=== PATIENT | female | born 1985 | race Hispanic/Latino ===

== ENCOUNTER 2018-02-27 18:54 | Inpatient (IN) | payer BC ==
[2018-02-27] MEDS ORDERED: CARBOPROST TROME 250 MCG/ML IM PRN (19:15)
[2018-02-27] MEDS ORDERED: PROMETHAZINE 25 MG/ML VIAL IM PRN (19:15)
[2018-02-27] MEDS ORDERED: METHYLERGONOVINE 0.2MG/ML AMP IM PRN (19:15)
[2018-02-27] MEDS ORDERED: Ringers Lactate 1,000 ML IV PRN (19:15)
[2018-02-27] MEDS ORDERED: BUTORPHANOL 1 MG/ML INJ IV PRN (19:15)
[2018-02-27] MEDS ORDERED: BUTORPHANOL 1 MG/ML INJ ONE (19:17)
[2018-02-27 19:45] LABS: RPR Titer ND
[2018-02-27] MEDS ORDERED: OXYTOCIN/LR 20 UNIT/1,000 ML BAG IV ONE (19:59)
[2018-02-27] MEDS ORDERED: Ringers Lactate 1,000 ML IV SCH (20:00)
[2018-02-27 20:05] LABS: Absolute Lymphocytes (CBC) 1.9 K/uL (0.7-4.9); Absolute Monocytes 0.6 K/uL (0.1-1.3); Absolute Neutrophil 10.2 K/uL (1.8-8.0); Basophils % 0.2 % (0-1.3); Eosinophils % 0.1 % (0-4.4); Hematocrit 39.5 % (36.0-45.0); Lymphocytes % 14.6 % (15.3-44.8); MCH 30.2 pg (27.0-35.0); MCV 89.2 fL (80-100); MPV 11.9 fL (7.6-11.3); Monocytes % 5.1 % (3.3-12.3); RBC Red Blood Cell Count 4.43 M/uL (3.86-4.86)
[2018-02-27] MEDS ORDERED: ROPIVACAINE HCL 100 ML IV PRN (20:18)
[2018-02-27] MEDS ORDERED: FENTANYL CITR 100 MCG/2 ML IV ONE (20:18)
[2018-02-27] MEDS ORDERED: ROPIVACAINE HCL 0.2% 20ML AMP IV ONE (20:19)
[2018-02-27] MEDS ORDERED: LIDOCAINE 1% 20 ML MDV ONE (20:22)
[2018-02-27] MEDS ORDERED: BUPIVACAINE 0.25% PF 10 ML VIAL ONE (21:33)
[2018-02-27] MEDS ORDERED: DIPHENHYDRAMINE 25 MG TAB/CAP PO PRN (22:15)
[2018-02-27] MEDS ORDERED: Oxycodone HCl/Acetaminophen 1 TAB TAB PO PRN (22:15)
[2018-02-27] MEDS ORDERED: IBUPROFEN 200 MG TAB PO PRN (22:15)
[2018-02-27] MEDS ORDERED: DOCUSATE NA/SENNA CONC 1 TAB PO PRN (22:15)
[2018-02-27] MEDS ORDERED: ACETAMINOPHEN 500 MG TAB PO PRN (22:15)
[2018-02-27] MEDS ORDERED: BISACODYL 10 MG RECTAL SUPP RECT PRN (22:15)
[2018-02-27 22:41] LABS: RPR (Rapid Plasma Reagin) NON-REACT (NON-REACT)
[2018-02-27] MEDS ORDERED: OXYTOCIN/LR 20 UNITS/1,000 ML BAG IV SCH (23:00)
[2018-02-28 01:05] VITALS: BMI 40.0
[2018-02-28] MEDS: Oxycodone HCl/Acetaminophen 1 TAB TAB PO PRN ×2 (07:45→15:34)
--- NOTE | 2018-02-28 09:29 | PN ---
The patient has just been checked. She is still about 8 cm -1 station. FHTs normal. We will go ahe ad and get Anesthesia to see if they can come out and give her an epidural, which was ordered previou cristobal. See if we can do that before she delivers. ILIA/LOVE Voice ID: [id number] Report ID: [id number]
--- NOTE | 2018-02-28 09:32 | PREOPHP ---
Date of Admission: 02/27/2018 A 33-year-old female, 3, para 2, at 37 weeks 2 days, is in labor and delivery this morning, t aking she was having contractions, was evaluated not thought to be in labor and sent home. Comes jake k this evening in active labor, 4-5 cm on admission. The patient is now 8 cm, 100% effaced, vertex 0 to -1 station. Rupture of membranes, slightly blood tinged, meconium staining as possible minimal a bruption, but FHTs are completely normal and reactive. The patient is rapidly progressing, so I thin k she will deliver vaginally and then we will inspect the placenta. Rh positive. Immune to Rubella. Negative beta strep screen. Admission talk given. The patient probably will not have time for an epidural although I ordered an epidural and Anesthesia is not called. At this point, we will check h er again in another 15 minutes and if she still has not completely dilated then we will call anesthes ia. I thought she will probably deliver rapidly, and we probably will not have time. Full discussio n with patient and family. ILIA/LOVE Voice ID: [id number]
--- NOTE | 2018-02-28 11:11 | DS ---
Hospital Course: A 33-year-old, 3, para 2, 37 weeks 2 days, had been seen earlier in the day , thought she was in labor. Labor and Delivery nurses thought otherwise, she was sent home. Came ba dafne in active labor. 4-5 cm on admission with rupture of membranes, slight bloody show, thought to po ssibly be marginal abruption but later inspection of the placenta showed it was just bloody show. St adol IV 1 mg, Phenergan 25 mg IM. Then at 8-1/2 to 9 cm the patient was given spinal block anesthesi a, which gave excellent effect. Shortly thereafter, she began pushing, second stage of 5-7 minutes, spontaneous vaginal delivery of an estimated 7-1/2 to 8 pounds male infant, Apgars 9 and 9. No episi otomy. No laceration. Schultze delivery of the placenta, which was inspected and noted to be intact and normal. Less than 250 cc blood loss. Rh positive, immune to Rubella. Negative beta strep scre en. The patient tolerated all procedures well. Final Diagnosis: Term intrauterine at 37 weeks 2 days, spontaneous labor, vaginal delivery , spinal block anesthesia. ILIA/LOVE Voice ID: [id number] Report ID: [id number]
--- NOTE | 2018-03-01 04:27 | DS ---
Hospital Course: A 33-year-old, 3, para 2. The patient was 37 weeks 2 days, came in active labor, subsequently delivered a 7-pound 12-ounce male , Apgars 9 and 9. No episiotomy. No lac eration. Schultze delivery of the placenta, which was inspected and noted to be intact and normal. Less than 250 cc blood loss. Spinal block with fentanyl gave excellent relief. Rh positive. Immune to Rubella. Negative beta strep screen. afebrile, ambulating, and voiding. Lochia is n ormal. The patient will be dismissed either late this evening or more likely tomorrow morning to rep ort back to my office in 6 weeks for followup, to report any temperature elevation of 100 degrees or greater, severe pain, heavy bleeding, or any other type of abnormalities. No post spinal block probl ems. Full dismissal instructions. She is given tramadol for analgesia although she knows she can ta ke Motrin or Tylenol instead as all medicines go through the breast milk. Full discussion. She has had her Tdap immunization. She has no problems or questions this morning. Final Diagnoses: Term intrauterine 37 weeks 2 days, spontaneous labor, spontaneous vaginal delivery, spinal block anesthesia. ILIA/LEANDROL Voice ID: [id number] Report ID: [id number]
[2018-03-01 09:24] VITALS: TEMP 97.7
[2018-03-01 09:30] VITALS: BP 121/70
--- NOTE | 2018-03-02 05:25 | DS ---
Date of Discharge: 03/01/2018 Hospital Course: This is a 33-year-old, 3, para 2, 37 weeks 2 days. Vaginal delivery of an estimated 7 pound 12 ounce male , Apgars 9 and 9. Spinal block anesthesia. No episiotomy. No laceration. Less than 250 cc blood loss. Rh positive, immune to Rubella. Negative beta strep scre en. Done well . She is afebrile, ambulating, and voiding. Dismissed to return to [facility] in 6 weeks for followup. To report any temperature elevation of 100 degrees or greater, severe pa in, heavy bleeding, or any other type of abnormalities. Final Diagnoses: Term intrauterine at 37 weeks 2 days. Vaginal delivery. Spinal block an esthesia. ILIA/LOVE Voice ID: [id number] Report ID: [id number]
[2018-03-03 04:03] LABS: HBsAG Nonreactive (Nonreactive)
--- NOTE | 2018-03-06 08:14 | OP ---
Surgeon: Matty Benitez MD Indication And Procedure: A 33-year-old, 3, para 2, 37 weeks 2 days, came in active labor. Had spinal block anesthesia for delivery. During the labor, Stadol IV and Phenergan IM, progressed rapidly to complete second stage of 10 minut es or less. Spontaneous vaginal delivery of a 7 pounds, 12 ounce male , Apgars 9 and 9. No ep isiotomy. No laceration. Schultze delivery of the placenta which was inspected and noted to be inta ct and normal. A 250 cc or less blood loss. Rh positive, immune to Rubella. Negative beta strep sc reen. Tolerated all procedures well. Final Diagnoses: Term intrauterine 37 weeks 2 days, spontaneous labor, vaginal delivery, s sera block anesthesia. ILIA/LOVE Voice ID: [id number] Report ID: [id number]
== END 2018-03-01 08:30 | disposition home or self-care (01) | DRG 775 ==
LOC: L&D 18:54 → 2ND-WC 19:05
PROVIDERS: ADMIT Specialist; ATTEND Specialist
PROC: 10E0XZZ Delivery of Products of Conception, External Approach (ICD-10-PCS; principal; 2018-02-27)
PROC: 10907ZC Drainage of Amniotic Fluid, Therapeutic from Products of Conception, Via Natural or Artificial Opening (ICD-10-PCS; 2018-02-27)
DX: O80 Encounter for full-term uncomplicated delivery (principal); Z3A.37 37 weeks gestation of pregnancy; Z37.0 Single live birth
CPT/HCPCS: 36415; 85025; 86592; 86901; 87340; 99218; J0595; J2210; J2550; J2590; J2795; J3010

== ENCOUNTER 2019-06-29 01:54 | Emergency (ER) | payer BC ==
[2019-06-29] MEDS ORDERED: NA CHLORIDE 0.9% 1,000 ML ONE (02:31)
[2019-06-29] MEDS ORDERED: ONDANSETRON 4 MG/2 ML VIAL ONE (02:31)
[2019-06-29 02:52] LABS: Hematocrit 41.9 % (36.0-45.0)
[2019-06-29 02:53] LABS: Absolute Lymphocytes (CBC) 0.6 K/uL (0.7-4.9); Basophils % 0.2 % (0-1.3); Lymphocytes % 8.1 % (15.3-44.8); MPV 10.3 fL (7.6-11.3)
[2019-06-29 03:03] LABS: Albumin 4.2 g/dL (3.4-5.0); Bilirubin Direct 0.2 mg/dL (0-0.2); Bilirubin Total 0.7 mg/dL (0.2-1.0); Potassium 3.8 mmol/L (3.5-5.1); Protein, Total 7.9 g/dL (6.4-8.2)
[2019-06-29 03:19] LABS: Blood Morphology Comment NOT SEEN (NOT SEEN); Platelet Estimate ADEQ
--- NOTE | 2019-06-29 03:36 | ER ---
Nurse's Notes [facility] Name: Garima Doherty Age: 34 yrs Sex: Female : 1985 Arrival Date: 06/29/2019 Time: 01:56 Bed 7 Private MD: Diagnosis: Vomiting, unspecified;Diarrhea, unspecified;Dehydration Presentation: 06/29 02:07 Presenting complaint: Patient states: she has been feeling bad today has vomited x 3, bb she had some chest pain then pain in the epigastric area radiating to back is feeling dizzy, pain is intermittent and 9/10. Transition of care: patient was not received from another setting of care. Onset of symptoms was June 28, 2019. Risk Assessment: Do you want to hurt yourself or someone else? Patient reports no desire to harm self or others. Initial Sepsis Screen: Does the patient meet any 2 criteria? No. Patient's initial sepsis screen is negative. Does the patient have a suspected source of infection? No. Patient's initial sepsis screen is negative. Care prior to arrival: None. 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 - Social history:: Smoking status: Patient/guardian denies using tobacco. - Ebola Screening: : No symptoms or risks identified at this time. Screenin:39 Abuse screen: Denies threats or abuse. Denies injuries from another. Nutritional ak1 screening: No deficits noted. Tuberculosis screening: No symptoms or risk factors identified. Fall Risk None identified. Assessment: 02:39 General: Appears in no apparent distress. comfortable, Behavior is calm, cooperative, ak1 appropriate for age. Pain: Complains of pain in epigastric area, right upper quadrant and left upper quadrant. Neuro: No deficits noted. Cardiovascular: No deficits noted. Respiratory: No deficits noted. GI: Abdomen is round non-distended, Bowel sounds present X 4 quads. Abd is soft and non tender X 4 quads. Abd is soft Reports nausea, vomiting, since breakfast this morning. pt stated she had egg and sausage biscuit for breakfast, vomited after eating. pt stated she had pizza and cupcake for lunch, vomited after eating. pt stated she had soup for dinner and vomited after dinner. pt denies diarrhea. : No signs and/or symptoms were reported regarding the genitourinary system. EENT: No signs and/or symptoms were reported regarding the EENT system. Derm: No signs and/or symptoms reported regarding the dermatologic system. Musculoskeletal: No signs and/or symptoms reported regarding the musculoskeletal system. 03:40 Reassessment: Patient appears in no apparent distress at this time. Patient and/or ak1 family updated on plan of care and expected duration. Pain level reassessed. Patient is alert, oriented x 3, equal unlabored respirations, skin warm/dry/pink. pt given ice chips and ice water to advance as tolerated for PO challenge. Patient states feeling better. Patient states symptoms have improved. 03:58 Reassessment: no vomiting since pt has been in ER. ak1 Vital Signs: 02:09 BP 116 / 80; Pulse 101; Resp 16 S; Temp 100.3(O); Pulse Ox 97% on R/A; Weight 86.18 kg bb (R); Height 5 ft. 1 in. (154.94 cm) (R); Pain 9/10; 02:42 BP 113 / 79; Pulse 91; Resp 16; Pulse Ox 98% on R/A; ak1 03:00 BP 103 / 65; Pulse 86; Resp 16; Temp 98.3(O); Pulse Ox 98% ; ak1 02:09 Body Mass Index 35.90 (86.18 kg, 154.94 cm) ED Course: 01:56 Patient arrived in ED. ds1 02:08 Triage completed. bb 02:09 Arm band placed on Patient placed in an exam room, on a stretcher, on pulse oximetry. bb Family accompanied patient. 02:19 Tj Singh MD is Attending Physician. tw4 02:26 Velma Hedrick, RN is Primary Nurse. ak1 02:39 Patient has correct armband on for positive identification. Bed in low position. Call ak1 light in reach. Side rails up X 1. Adult w/ patient. Pulse ox on. NIBP on. 02:39 Initial lab(s) drawn, by ED staff, sent to lab. Urine collected: clean catch specimen. ak1 Inserted saline lock: 20 gauge in right antecubital area, using aseptic technique. ,using aseptic technique. placed by Robert Prater Blood collected. 03:40 No provider procedures requiring assistance completed. ak1 03:58 IV discontinued, intact, bleeding controlled, No redness/swelling at site. Pressure ak1 dressing applied. Administered Medications: 02:37 Drug: NS 0.9% 1000 ml Route: IV; Rate: 1 bolus; Site: right antecubital; ak1 03:18 Follow up: IV Status: Completed infusion; IV Intake: 1000ml ak1 02:38 Drug: Zofran 4 mg Route: IVP; Site: right antecubital; ak1 03:13 Follow up: Response: No adverse reaction ak1 Intake: 03:18 IV: 1000ml; Total: 1000ml. ak1 Outcome: 03:35 Discharge ordered by . tw4 03:58 Discharged to home ambulatory, with family. ak1 03:58 Condition: good 03:58 Discharge instructions given to patient, family, Instructed on discharge instructions, follow up and referral plans. medication usage, Demonstrated understanding of instructions, follow-up care, medications, Prescriptions given X 1. 03:59 Patient left the ED. ak1 Signatures: Shanel Mccabe Brenda, RN RN Velma Martines RN RN ak1 Tj Singh MD MD tw4
--- NOTE | 2019-06-29 03:36 | EDPHYS ---
Physician Documentation [facility] Name: Garima Doherty Age: 34 yrs Sex: Female : 1985 Arrival Date: 06/29/2019 Time: 01:56 Bed 7 Private MD: ED Physician Tj Singh HPI: 06/29 05:51 This 34 yrs old Female presents to ER via Ambulatory with complaints of Can't tw4 Keep Anything Down, Abdominal Pain. 05:51 The patient presents to the emergency department with nausea, vomiting. The patient tw4 presents to the emergency department with vomiting, 3 times since the onset of symptoms. Onset: The symptoms/episode began/occurred today. The symptoms are aggravated by nothing. The symptoms are alleviated by nothing. Severity of symptoms: At their worst the symptoms were moderate in the emergency department the symptoms are unchanged. The patient has not experienced similar symptoms in the past. 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 - Social history:: Smoking status: Patient/guardian denies using tobacco. - Ebola Screening: : No symptoms or risks identified at this time. ROS: 05:51 Constitutional: Negative for fever, chills, and weight loss, Eyes: Negative for injury, tw4 pain, redness, and discharge, Cardiovascular: Negative for chest pain, palpitations, and edema, Respiratory: Negative for shortness of breath, cough, wheezing, and pleuritic chest pain. 05:51 MS/Extremity: Negative for injury and deformity, Skin: Negative for injury, rash, and discoloration, Neuro: Negative for headache, weakness, numbness, tingling, and seizure. 05:51 Abdomen/GI: Positive for nausea and vomiting, nausea, vomiting, and diarrhea, nausea, vomiting, abdominal cramps, Negative for black/tarry stool, rectal pain, rectal bleeding, bowel incontinence. Exam: 05:51 Constitutional: This is a well developed, well nourished patient who is awake, alert, tw4 and in no acute distress. Head/Face: Normocephalic, atraumatic. Chest/axilla: Normal chest wall appearance and motion. Nontender with no deformity. No lesions are appreciated. Cardiovascular: Regular rate and rhythm with a normal S1 and S2. No gallops, murmurs, or rubs. Normal PMI, no JVD. No pulse deficits. Respiratory: Lungs have equal breath sounds bilaterally, clear to auscultation and percussion. No rales, rhonchi or wheezes noted. No increased work of breathing, no retractions or nasal flaring. 05:51 Skin: Warm, dry with normal turgor. Normal color with no rashes, no lesions, and no evidence of cellulitis. MS/ Extremity: Pulses equal, no cyanosis. Neurovascular intact. Full, normal range of motion. Neuro: Awake and alert, GCS 15, oriented to person, place, time, and situation. Cranial nerves II-XII grossly intact. Motor strength 5/5 in all extremities. Sensory grossly intact. Cerebellar exam normal. Normal gait. 05:51 Abdomen/GI: Inspection: abdomen appears normal, Bowel sounds: Palpation: mild abdominal tenderness, in the epigastric area. Vital Signs: 02:09 BP 116 / 80; Pulse 101; Resp 16 S; Temp 100.3(O); Pulse Ox 97% on R/A; Weight 86.18 kg bb (R); Height 5 ft. 1 in. (154.94 cm) (R); Pain 9/10; 02:42 BP 113 / 79; Pulse 91; Resp 16; Pulse Ox 98% on R/A; ak1 03:00 BP 103 / 65; Pulse 86; Resp 16; Temp 98.3(O); Pulse Ox 98% ; ak1 02:09 Body Mass Index 35.90 (86.18 kg, 154.94 cm) bb MDM: 02:19 Patient medically screened. tw4 05:51 Differential diagnosis: Nonspecific abd pain, gastritis, cholecystitis. Data reviewed: tw4 vital signs, nurses notes. Data interpreted: Pulse oximetry: Interpretation: normal. Counseling: I had a detailed discussion with the patient and/or guardian regarding: the historical points, exam findings, and any diagnostic results supporting the discharge/admit diagnosis. Special discussion: I discussed with the patient/guardian in detail that at this point there is no indication for admission to the hospital. It is understood, however, that if the symptoms persist or worsen the patient needs to return immediately for re-evaluation. 06/29 02:20 Order name: Basic Metabolic Panel; Complete Time: 03:33 06/29 03:33 Interpretation: Normal except: GLUC 128; GFR 66. 06/29 02:20 Order name: CBC with Diff; Complete Time: 03:33 06/29 03:33 Interpretation: Normal except: FACUNDO% 85.1; LYM% 8.1. 06/29 02:20 Order name: Creatinine for Radiology; Complete Time: 03:33 06/29 02:20 Order name: Hepatic Function; Complete Time: 03:33 06/29 02:20 Order name: Lipase; Complete Time: 03:33 06/29 03:34 Interpretation: Within normal limits: LIP 90. 06/29 02:47 Order name: Urine Dipstick--[facility]cillary (enter results) [facility] 06/29 02:20 Order name: IV Saline Lock; Complete Time: 02:44 06/29 02:20 Order name: Labs collected and sent; Complete Time: 02:44 06/29 02:20 Order name: Urine Dipstick-Ancillary (obtain specimen); Complete Time: 02:43 06/29 02:20 Order name: Urine Test (obtain specimen); Complete Time: 02:44 06/29 02:47 Order name: Urine --[facility]cillary (enter results) [facility] 06/29 03:06 Order name: Manual Differential; Complete Time: 03:33 EDMS 06/29 03:33 Interpretation: Abnormal: LYM 5; BANDS [F] 3; SEGS 86. tw4 Administered Medications: 02:37 Drug: NS 0.9% 1000 ml Route: IV; Rate: 1 bolus; Site: right antecubital; ak1 03:18 Follow up: IV Status: Completed infusion; IV Intake: 1000ml ak1 02:38 Drug: Zofran 4 mg Route: IVP; Site: right antecubital; ak1 03:13 Follow up: Response: No adverse reaction ak1 Disposition: 06/29/19 03:35 Discharged to Home. Impression: Vomiting, unspecified, Diarrhea, unspecified, Dehydration. - Condition is Stable. - Discharge Instructions: Nausea and Vomiting, Adult. - Prescriptions for Zofran 4 mg Oral Tablet - take 1 tablet by ORAL route every 12 hours As needed; 6 tablet. - Medication Reconciliation Form, Thank You Letter, Antibiotic Education, Prescription Opioid Use form. - Follow up: Private Physician; When: Upon discharge from the Emergency Department; Reason: If symptoms return, Recheck today's complaints, Continuance of care. - Problem is new. - Symptoms have improved. Signatures: Dispatcher [employer] EDMaryanne Agarwal RN RN Velma Martines RN RN ak1 Tj Singh MD MD tw4 Corrections: (The following items were deleted from the chart) 03:59 03:35 06/29/2019 03:35 Discharged to Home. Impression: Vomiting, unspecified; Diarrhea, ak1 unspecified; Dehydration. Condition is Stable. Forms are Medication Reconciliation Form, Thank You Letter, Antibiotic Education, Prescription Opioid Use. Follow up: Private Physician; When: Upon discharge from the Emergency Department; Reason: If symptoms return, Recheck today's complaints, Continuance of care. Problem is new. Symptoms have improved. tw4
[2019-06-29 04:09] VITALS: O2SAT 98
[2019-06-29 04:10] VITALS: BP 103/65; TEMP 98.3
[2019-06-29 04:17] LABS: Urine Blood NEGATIVE (NEG); Urine Glucose NEGATIVE (NEG); Urine Protein 1+ (NEG); Urine pH 8.5 (5.0-7.0)
== END 2019-06-29 03:59 | disposition home or self-care (01) ==
LOC: ER 01:54
DX: E86.0 Dehydration (principal); R19.7 Diarrhea, unspecified
CPT/HCPCS: 96361; 85025; 80048; 36415; 81025; 80076; 81003; 83690; 96374; 99284; J7030; J2405

== ENCOUNTER 2021-10-31 08:18 | Day surgery (SDC) | payer OTHER ==
[2021-10-27 10:46] LABS: Absolute Lymphocytes (CBC) 2.4 K/uL (0.7-4.9); Hematocrit 41.7 % (36.0-45.0); Lymphocytes % 34.4 % (15.3-44.8); MPV 10.3 fL (7.6-11.3); RBC Red Blood Cell Count 4.74 M/uL (3.86-4.86)
[2021-10-27 10:49] LABS: Protime INR 0.99
[2021-10-27 10:59] LABS: Potassium 3.8 mmol/L (3.5-5.1)
--- NOTE | 2021-10-28 15:14 | EKG ---
Test Date: 2021-10-27 Test Time: 10:19:12 Drain Tile Machine Operator: OSKAR MEASUREMENT RESULTS: Intervals: Rate: 63 OR: 162 QRSD: 80 QT: 412 QTc: 421 [place]: P: 42 OR: 162 QRS: 0 T: 22 INTERPRETIVE STATEMENTS: Normal sinus rhythm Normal ECG No previous ECG available for comparison Electronically Signed On 10-28-21 15:14:03 PLASTER LATHER by Codey Collins
[2021-10-31] MEDS ORDERED: Ringers Lactate 1,000 ML IV ONE (08:42)
[2021-10-31] MEDS ORDERED: CEFAZOLIN/SWI 2gm 2 GM/20 ML SYR ONE (09:58)
[2021-10-31] MEDS ORDERED: FENTANYL CITR 100 MCG/2 ML ONE (09:59)
[2021-10-31] MEDS ORDERED: propofoL 200 MG/20 ML VIAL IV ONE (09:59)
[2021-10-31] MEDS ORDERED: MIDAZOLAM HCL 2 MG/2 ML INJ ONE (09:59)
[2021-10-31] MEDS ORDERED: LIDOCAINE 1% MPF 5 ML VIAL ONE (09:59)
[2021-10-31] MEDS ORDERED: dexAMETHasone 10 MG/ML VIAL ONE (10:00)
[2021-10-31] MEDS ORDERED: ONDANSETRON 4 MG/2 ML VIAL ONE (10:02)
[2021-10-31] MEDS ORDERED: CODEINE 30MG/APAP 300MG TAB PO PRN ×2 (10:14→11:16)
[2021-10-31] MEDS ORDERED: PHENAZOPYRIDINE 100MG TAB PO ONE ×3 (10:14→12:20)
[2021-10-31] MEDS ORDERED: KETOROLAC 30 MG/ML INJ ONE (11:05)
[2021-10-31 11:17] VITALS: TEMP 97
--- NOTE | 2021-10-31 11:26 | RAD REPORT ---
EXAM DESCRIPTION: RAD - Urethrocystogrphy Retrograde - 10/31/2021 11:10 am FINDINGS: A total of 34 portable fluoroscopic KUB images were obtained during a fluoroscopic assiste d placement of bilateral ureteral stents. Images show stepwise placement of the stents with no suspicious or unexpected finding. Fluoro time was 44 seconds
[2021-10-31] MEDS ORDERED: CODEINE 30MG/APAP 300MG TAB ONE (12:20)
--- NOTE | 2021-10-31 13:35 | OP ---
Surgeon: SALINA BUTLER Preoperative Diagnoses: 1.Bilateral nephrolithiasis. 2.Bilateral flank pain. 3.Persistent proteus urinary tract infection. Postoperative Diagnoses: 1.Bilateral nephrolithiasis. 2.Bilateral flank pain. 3.Persistent proteus urinary tract infection. 4.Obstructive left ureterolithiasis. 5.Nonobstructive right nephrolithiasis. 6.Chronic cystitis. Principal Procedures: 1.Cystoscopy. 2.Bilateral ureteroscopy. 3.Bilateral laser lithotripsy. 4.Bilateral ureteral stents placed. 5.Bilateral retrograde pyelography. Findings: 5 mm obstructive left ureterolithiasis, 3 mm nonobstructive right nephrolithiasis. Indication For Procedure: Ms. Doherty presented to Urology Clinic with recurrent UTIs with proteus. She subsequently underwent cystoscopic evaluation and evaluation with upper tract imaging including an ultrasound and a KUB revealing the presence of bilateral nephrolithiasis. Because the UTI did not clear despite adequate targeted antimicrobial therapy, I explained to the patient the potential that the stones may be harboring infection, and the type of bacteria is known to contribute to stone form ation. As a result, because the stones were not eminently visible on KUB, the need for ureteroscopic management became evident. Also, today prior to surgery, the patient mentioned she was also having some right flank pain, which began since her last evaluation with me earlier this month. We agreed t hat we would similarly evaluate the right side in addition to management of anything on the left. Procedure In Detail: The patient was consented in the preoperative holding area before being transfe rred to the operative suite where general anesthesia was induced. She was given Ancef 2 g IV antimic robial prophylaxis and pneumo boots were provided for DVT prophylaxis. She was placed in the lithoto my position, padded and secured to the table appropriately. Her genitalia were prepped using Betadin e, and she was draped in standard fashion. The case was begun using a 22-Jamaican rigid cystoscope to traverse the urethra and into the bladder with ease. The bladder was decompressed of urine and then refilled with saline and surveyed in its entirety. Throughout the mucosa, there was evidence of circuit clerk pop cystitis cystica. As a result, I identified the ureteral orifices, which were present within the trigone and cannulated the left ureteral orifice first using a 5-Jamaican ureteral access catheter. Left retrograde pyelography: Using a 70:30 mixture of Omnipaque and saline, contrast was injected via the 5-Jamaican ureteral access catheter and did meet a point of obstruction in the distal ureter, associated with some ureteral nep hrosis proximally. Contrast did eventually enter the renal pelvis. As a result, I passed a Sensor w marifer beyond the point of obstruction and the wire did coil in the upper pole of the kidney. I then wa s able to decompress her bladder and turned my attention to the right side where a right retrograde p yelogram was also performed. Right retrograde pyelography: Using a similar 70:30 mixture of Omnipaque and saline, contrast mixture was injected via a 5-Jamaican u reteral access catheter after it was inserted into the ureteral orifice on the right side. On this s luis fernando, however, there was no sign of obstruction and the contrast did propagate easily without evidence of ureteral filling defects or ureteronephrosis before entering a nondilated renal pelvis with no ev idence of caliectasis and sharp calices noted superiorly and inferiorly. There was a filling defect within the mid pole calyx suspicious for possible calculus in that region. As a result, I passed a B entson guidewire via the 5-Jamaican ureteral access catheter and observed a coil in the renal pelvis on the right. I then turned my attention back to the left side where a dual-lumen catheter was used to dilate the ureteral orifice and confirmed the appropriate intraureteral lumen location of the Sensor wire. I then removed the dual-lumen catheter and performed direct vision semi-rigid ureteroscopy in to the ureteral orifice where the stone was encountered. I then employed a 200 nm laser fiber to lucie ckly fragment the stone to particle smaller than 1 mm. I was then able to navigate the semi-rigid ur eteroscope beyond that point of obstruction and into the proximal ureter before passing a Bentson lyla dewire into the kidney under direct vision. I then removed the semi-rigid ureteroscope and passed ov er the Bentson guidewire, a flexible ureteroscope into the upper pole of the kidney. Each of the perry ices of the kidney was surveyed and confirmed using fluoroscopic guidance, and no additional calculi were noted within the kidney. I then surveyed down the renal pelvis through the proximal into the mi d and distal ureter before a mass of the fragmented stone was observed just within the intramural ure ter. Thus, I employed a 1.9-Jamaican 0 tipped Nitinol basket to grasp the stones and deliver it from t he ureteral orifice. This was sent for chemical analysis. Then, leaving the Sensor wire in place on the left, I turned my attention to the right side. Over the indwelling Bentson safety wire on the right, I passed a dual-lumen catheter into the mid ure ter and again confirmed the appropriate intraureteral lumen location of the dual-lumen catheter. I t hen passed a second Bentson guidewire into the upper pole of the kidney and removed the dual-lumen ca theter. Over the second Bentson guidewire, I then passed the flexible ureteroscope into the upper po le of the kidney and surveyed each of the calices. As observed on the prior retrograde pyelogram alhaji dy on the right, within the mid pole calyx on the left, there was an approximately 3 mm calculus. I quickly fragmented this using the 200 nm laser fiber. I then continued to survey into the lower pole calices where only evidence of Graham plaques were noted. I thus surveyed from the renal pelvis do wn into the proximal, mid, and distal ureter before discontinuing right-sided ureteroscopy. I then back-loaded the cystoscope over the left indwelling safety wire and passed a 6-Jamaican x 24 cm double-J stent. A coil was observed fluoroscopically within the kidney and 1 cystoscopically was for med in the bladder. I then turned my attention to the right side and similarly backloaded the cystos cope over the indwelling safety wire before passing an additional 6-Jamaican x 24 cm double-J right-laureen ed ureteral stent. Similarly, a coil was observed cystoscopically within the bladder and 1 was forme d fluoroscopically within the renal pelvis. Her bladder was then decompressed of fluid, urine, and s ome additional stone fragments. The stone fragments were collected, and these were sent for culture. The patient was then taken out of the lithotomy position, awakened from general anesthesia, transfe rred to a stretcher, and then transferred to the recovery room in good condition. Complications: None. Discharge Disposition: To treat the chronic cystitis, I will prescribe Bactrim Double Strength table ts to be taken twice daily for the next 10 days. We will arrange for cystoscopy and bilateral ureter al stent extraction in the office within 7-14 days. She will require counseling if this is her first stone forming event, to prevent future stones, and we will require a confirmation of clearance of th e proteus infection about 2 weeks after she completes the antibiotics and the stents have been remove d. ANUEL/LOVE Voice ID: [id number] Report ID: [id number]
[2021-10-31 14:23] VITALS: BP 125/81; O2SAT 100
== END 2021-10-31 13:05 | disposition home or self-care (01) ==
LOC: OR 08:18
PROVIDERS: ATTEND Urology
PROC: 0TC68ZZ Extirpation of Matter from Right Ureter, Via Natural or Artificial Opening Endoscopic (ICD-10-PCS; 2021-10-31)
PROC: 0T788DZ Dilation of Bilateral Ureters with Intraluminal Device, Via Natural or Artificial Opening Endoscopic (ICD-10-PCS; 2021-10-31)
PROC: 0TC78ZZ Extirpation of Matter from Left Ureter, Via Natural or Artificial Opening Endoscopic (ICD-10-PCS; principal; 2021-10-31 10:15)
DX: N20.1 Calculus of ureter (principal); N20.0 Calculus of kidney; R10.9 Unspecified abdominal pain; N30.20 Other chronic cystitis without hematuria; Z20.822 Contact with and (suspected) exposure to COVID-19
CPT/HCPCS: 52356; 93005; 87088; 85025; 87086; 80048; 36415; 81025; 85610; 88300; 82360; 74450; 51610; U0003; J2704; J2250; J3010; J1100; J0690; J7120; J2405

== ENCOUNTER 2023-03-27 02:31 | Emergency (ER) | payer OTHER ==
--- OUTSIDE RECORDS SUMMARY | 2023-03-27 02:33 | XMS REPORT | Continuity of Care Document ---
:1985 Author Organization [facility] t Address [address] [place] [address] Care Team Providers Name Role Phone Andrés Alta Attending Clinician Unavailable Payers Payer Name Policy Type Policy Number Effective Date Expiration Date S trell AETNA 53 [id number] [facility] Blue Cross C1 [id number] [facility] of [facility] Blue Cross C1 [id number] [facility] [employer] of [facility] Blue Cross and C1 [id number] [facility] S [facility] Problems Condition Condition Condition Status Onset Resolution Last Treating Co mments Source Name Details Category Date Date Treatment Clinician Date Kidney Nephrolith Problem Active Commo n stone iasis [facility] [id number] Left flank Problem Active Co mmon pain [facility] [id number] Proteus Problem Active Common (mirabilis [facility] ) - [facility] (morganii) St as the [facility] cause of Medical diseases Center classified elsewhere [id number] Urinary Problem Active Commo n tract [facility] infection, - [facility] site not [facility] [id number] Caliectasi Problem Active Co mmon s [facility] [id number] Nephrouret Problem Active Co mmon erolithias [facility] is - [facility] Allergies, Adverse Reactions, Alerts This patient has no known allergies or adverse reactions. Social History Social Habit Start Date Stop Date Quantity Comments Source History of Tobacco Use Co mmon [facility] Sex Assigned At Com mon [facility] Smoking Status Start Date Stop Date Source Never Smoker [facility] Medications Ordered Filled Start Stop Current Ordering Indication Dosage Frequency Signature Comments Components Source Medication Medication Date Date Medication? Clinician (SIG) Name Name Ditropan XL Ditropan XL 2021- No 1{table QD Ditropan 5 MG 5 MG 11-2016 t} XL 5 MG 00:00: 00:00 00 :00 Cephalexin Cephalexin 2021- No 1{capsu TID Cephalexin 500 MG 500 MG 10-18 le} 500 MG 00:00: 00:00 00 :00 Cephalexin Cephalexin 2020-10- No 1{capsu TID Cephalexin 500 MG 500 MG 11-30 le} 500 MG 00:00: 00:00 00 :00 Cephalexin Cephalexin 2020- No 1{capsu TID Cephalexin 500 MG 500 MG 04-10 le} 500 MG 00:00: 00:00 00 :00 No Known No Known No Common Medications Medications [facility] No Known No Known No Common Medications Medications [facility] No Known No Known No Common Medications Medications [facility] No Known No Known No Common Medications Medications [facility] Vital Signs Vital Name Observation Time Observation Value Comments Source height 2022-01-01 10:45:00 61 [in_i] [facility] weight 2022-01-01 10:45:00 199.2 [lb_av] [facility] temperature 2022-01-01 10:45:00 98.6 [degF] [facility] bmi 2022-01-01 10:45:00 37.63 kg/m2 [facility] oximetry 2022-01-01 10:45:00 100 % [facility] respiratory rate 2022-01-01 10:45:00 16 /min Comm on [facility] blood pressure 2022-01-01 10:45:00 150 mm[Hg] [facility] - systolic [facility] blood pressure 2022-01-01 10:45:00 84 mm[Hg] [facility] - diastolic [facility] height 2021-11-20 13:15:00 61 [in_i] [facility] weight 2021-11-20 13:15:00 194 [lb_av] Common S pirit [facility] temperature 2021-11-20 13:15:00 98.6 [degF] Common S pirit [facility] bmi 2021-11-20 13:15:00 36.65 kg/m2 Common S pirit [facility] oximetry 2021-11-20 13:15:00 98 % [facility] respiratory rate 2021-11-20 13:15:00 16 /min Comm on [facility] blood pressure 2021-11-20 13:15:00 117 mm[Hg] [facility] - systolic [facility] blood pressure 2021-11-20 13:15:00 79 mm[Hg] [facility] - diastolic [facility] height 2021-10-18 16:15:00 61 [in_i] [facility] weight 2021-10-18 16:15:00 196.4 [lb_av] Common [facility] temperature 2021-10-18 16:15:00 97.9 [degF] Common S pirit [facility] bmi 2021-10-18 16:15:00 37.11 kg/m2 Common S pirit [facility] oximetry 2021-10-18 16:15:00 97 % Common S pirit [facility] respiratory rate 2021-10-18 16:15:00 16 /min Comm on [facility] blood pressure 2021-10-18 16:15:00 122 mm[Hg] [facility] - systolic [facility] blood pressure 2021-10-18 16:15:00 73 mm[Hg] [facility] - diastolic [facility] height 2021-09-27 09:15:00 61 [in_i] Common S pirit [facility] weight 2021-09-27 09:15:00 199.8 [lb_av] [facility] temperature 2021-09-27 09:15:00 97.8 [degF] Common S pirit [facility] bmi 2021-09-27 09:15:00 37.75 kg/m2 Common S pirit [facility] oximetry 2021-09-27 09:15:00 96 % Common [facility] respiratory rate 2021-09-27 09:15:00 18 /min Comm on [facility] blood pressure 2021-09-27 09:15:00 141 mm[Hg] Common [facility] - systolic [facility] blood pressure 2021-09-27 09:15:00 82 mm[Hg] [facility] - diastolic [facility] height 2021-04-05 14:30:00 61 [in_i] [facility] 2021-04-05 14:30:00 200.4 [lb_av] [facility] temperature 2021-04-05 14:30:00 97.4 [degF] Common S pirit [facility] bmi 2021-04-05 14:30:00 37.86 kg/m2 [facility] S [facility] oximetry 2021-04-05 14:30:00 98 % Common S pirit - [facility] blood pressure 2021-04-05 14:30:00 104 mm[Hg] [facility] - systolic [facility] blood pressure 2021-04-05 14:30:00 70 mm[Hg] [facility] - diastolic [facility] height 2021-02-22 13:30:00 61 [in_i] Common S pirit [facility] weight 2021-02-22 13:30:00 199.6 [lb_av] [facility] temperature 2021-02-22 13:30:00 97.1 [degF] Common S pirit [facility] bmi 2021-02-22 13:30:00 37.71 kg/m2 Common S pirit [facility] oximetry 2021-02-22 13:30:00 99 % Common S pirit [facility] blood pressure 2021-02-22 13:30:00 131 mm[Hg] Common [facility] - systolic [facility] blood pressure 2021-02-22 13:30:00 83 mm[Hg] Common [facility] - diastolic [facility] Procedures This patient has no known procedures. Encounters Start End Encounter Admission Attending Care Care Encounter Source Date/Time Date/Time Type Type Clinicians Facility Department ID 2021-11-06 Outpatient Andrés, STLMLC STLMLC [id number] 2 Common 15:40:01 Alta [facility] 2021-11-01 Outpatient Andrés, STLMLC STLMLC [id number] 2 Common 14:39:29 Alta [facility] 2021-11-01 Outpatient Andrés, STLMLC STLMLC [id number] 2 Common 13:05:14 Alta [id number] [facility] 2022-01-01 2022-01-01 OFFICE STLMLC STLMLC [id number] Co mmon 00:00:00 00:00:00 VISIT Spirit ESTAB PT - CHI LEVEL 2 [facility] 2021-11-20 2021-11-20 OFFICE STLMLC STLMLC [id number] Co mmon 00:00:00 00:00:00 VISIT Spirit ESTAB PT - CHI LEVEL 1 [facility] 2021-10-18 2021-10-18 OFFICE STLMLC STLMLC [id number] Co mmon 00:00:00 00:00:00 VISIT Spirit ESTAB PT - CHI LEVEL 4 [facility] 2021-09-29 2021-09-29 (TEL) STLMLC STLMLC [id number] Co mmon 00:00:00 00:00:00 [facility] 2021-09-27 2021-09-27 OFFICE STLMLC STLMLC [id number] Co mmon 00:00:00 00:00:00 VISIT EST Spir it PT LEVEL 3 - [facility] 2021-04-10 2021-04-10 (TEL) STLMLC STLMLC [id number] Co mmon 00:00:00 00:00:00 [facility] - [facility] 2021-04-05 2021-04-05 OFFICE STLMLC STLMLC [id number] Co mmon 00:00:00 00:00:00 VISIT Spirit ESTAB PT - CHI LEVEL 2 [facility] 2021-02-22 2021-02-22 OFFICE STLMLC STLMLC [id number] Co mmon 00:00:00 00:00:00 VISIT NEW Spir it PT LEVEL 2 [facility] Results This patient has no known results.
--- NOTE | 2023-03-27 02:53 | EDPHYS ---
Physician Documentation [facility] Name: Garima Doherty Age: 38 yrs Sex: Female : 1985 Arrival Date: 03/27/2023 Time: 02:31 Bed IW1 Private MD: ED Physician Louie Lemons HPI: 03/27 02:49 This 38 yrs old Female presents to ER via Ambulatory with complaints of Eye sp3 Problem. 02:49 . sp3 02:49 38-year-old female with no past medical history presents with left-sided eye lid sp3 swelling, eye redness, eye irritation, without loss or change in vision symptoms for approximately 4 to 5 hours. Patient states that yesterday she started rubbing her eye because it started to itch and due to that it is slowly become infected and red. There is no concern for foreign body or any direct trauma or eye injury. No history of glaucoma noted. Patient does not wear contact lenses. Review of systems otherwise negative for headache, neck pain, fever, upper respiratory symptoms, change in vision, facial pain, chest pain, shortness of breath, Trace pain, nausea, vomiting, diarrhea, rash, known sick contacts, travel history, trauma, or any other signs or symptoms on ROS at this time.. 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 - Social history:: Smoking status: Patient denies any tobacco usage or history of. Patient/guardian denies using alcohol, street drugs. ROS: 02:50 Constitutional: Negative for fever, chills, and weight loss, ENT: Negative for injury, sp3 pain, and discharge, Neck: Negative for injury, pain, and swelling, Cardiovascular: Negative for chest pain, palpitations, and edema, Respiratory: Negative for shortness of breath, cough, wheezing, and pleuritic chest pain, Abdomen/GI: Negative for abdominal pain, nausea, vomiting, diarrhea, and constipation, Back: Negative for injury and pain, MS/Extremity: Negative for injury and deformity, Skin: Negative for injury, rash, and discoloration, Neuro: Negative for headache, weakness, numbness, tingling, and seizure. 02:50 All other systems are negative. Exam: 02:51 Constitutional: This is a well developed, well nourished patient who is awake, alert, sp3 and in no acute distress. Head/Face: Normocephalic, atraumatic. ENT: Nares patent. No nasal discharge, no septal abnormalities noted. External auditory canals are clear. Oropharynx with no redness, swelling, or masses, exudates, or evidence of obstruction, uvula midline. Mucous membranes moist. Neck: Trachea midline, no thyromegaly or masses palpated, and no cervical lymphadenopathy. Supple, full range of motion without nuchal rigidity, or vertebral point tenderness. No Meningismus. Chest/axilla: Normal chest wall appearance and motion. Nontender with no deformity. No lesions are appreciated. Cardiovascular: Regular rate and rhythm with a normal S1 and S2. No gallops, murmurs, or rubs. Normal PMI, no JVD. No pulse deficits. Respiratory: Lungs have equal breath sounds bilaterally, clear to auscultation and percussion. No rales, rhonchi or wheezes noted. No increased work of breathing, no retractions or nasal flaring. Abdomen/GI: Soft, non-tender, with normal bowel sounds. No distension or tympany. No guarding or rebound. No evidence of tenderness throughout. Back: No spinal tenderness. No costovertebral tenderness. Full range of motion. Neuro: Awake and alert, GCS 15, oriented to person, place, time, and situation. Cranial nerves II-XII grossly intact. Motor strength 5/5 in all extremities. Sensory grossly intact. Cerebellar exam normal. Normal gait. Psych: Awake, alert, with orientation to person, place and time. Behavior, mood, and affect are within normal limits. 02:51 Eyes: Left eye irritated with some erythema and upper and lower lid swelling minor in nature. No signs of orbital cellulitis or proptosis. Anterior chambers clear without any hyphema. Pupils equal round reactive to light and extraocular movements are intact. There is no pain on eye movement. Visual acuity is normal.. Vital Signs: 02:40 BP 126 / 88; Pulse 74; Resp 17; Temp 97.9; Pulse Ox 99% ; Weight 90.72 kg; Height 5 ft. jj7 1 in. ; Pain 7/10; 02:40 Body Mass Index 37.79 (90.72 kg, 154.94 cm) jj7 02:40 Pain Scale: Adult jj7 MDM: 02:37 Patient medically screened. sp3 02:51 Data reviewed: vital signs, nurses notes. ED course: 38-year-old with likely left-sided sp3 conjunctivitis. I am not suspicious for orbital cellulitis, acute angle glaucoma, posterior chamber pathology, retinal pathology, or any other critical findings. I will discharge patient home on a steroid/antibiotic combination and follow-up with her vessel specialist for anterior slit lamp exam.. Administered Medications: 02:51 Drug: Tetracaine Ophthalmic Drops 0.5 % 2 drops Route: Ophthalmic; Site: left eye; j7 02:57 Follow up: Response: Marked relief of symptoms jj7 Disposition Summary: 03/27/23 02:53 Discharge Ordered Location: Home sp3 Condition: Stable sp3 Diagnosis - Other conjunctivitis sp3 Followup: sp3 - With: Private Physician - When: Upon discharge from the Emergency Department - Reason: Continuance of care Discharge Instructions: - Discharge Summary Sheet sp3 - Bacterial Conjunctivitis, Adult sp3 Forms: - Medication Reconciliation Form sp3 - Thank You Letter sp3 - Antibiotic Education sp3 - Prescription Opioid Use sp3 Prescriptions: - Maxitrol 3.5mg/mL-10,000 unit/mL-0.1 % Ophthalmic drops, suspension - instill 2 drop by OPHTHALMIC route every 4 hours 2 drops to left eye every 4 sp3 hours while awake; 10 milliliter; Refills: 0, Product Selection Permitted Signatures: Louie Lemons MD MD sp3 Tera Sanon RN RN jj7
--- NOTE | 2023-03-27 02:53 | ER ---
Nurse's Notes [facility] Name: Garima Doherty Age: 38 yrs Sex: Female : 1985 Arrival Date: 03/27/2023 Time: 02:31 Bed IW1 Private MD: Diagnosis: Other conjunctivitis Presentation: 03/27 02:40 Chief complaint: Patient states: LEFT EYE REDNESS,SWELLING AND PAIN. Coronavirus jj7 screen: At this time, the client does not indicate any symptoms associated with coronavirus-19. Ebola Screen: No symptoms or risks identified at this time. Initial Sepsis Screen: Does the patient meet any 2 criteria? No. Patient's initial sepsis screen is negative. Does the patient have a suspected source of infection? No. Patient's initial sepsis screen is negative. Risk Assessment: Do you want to hurt yourself or someone else? Patient reports no desire to harm self or others. Onset of symptoms was March 26, 2023 at 15:00. 02:40 Method Of Arrival: Ambulatory j7 02:40 Acuity: FAVIOLA 5 jj7 Triage Assessment: 02:43 General: Appears in no apparent distress. uncomfortable, Behavior is calm, cooperative, jj7 appropriate for age. Pain: Complains of pain in left eye. EENT: Eyes are tearing on outer aspect of conjuctiva of left eye, iris of left eye and inner aspect of conjunctiva of left eye. 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 - Social history:: Smoking status: Patient denies any tobacco usage or history of. Patient/guardian denies using alcohol, street drugs. Screenin:46 [facility] ED Fall Risk Assessment (Adult) History of falling in the last 3 months, jj7 including since admission No falls in past 3 months (0 pts) Confusion or Disorientation No (0 pts) Intoxicated or Sedated No (0 pts) Impaired Gait No (0 pts) Mobility Assist Device Used No (0 pt) Altered Elimination No (0 pt) Score/Fall Risk Level 0 - 2 = Low Risk Oriented to surroundings. Abuse screen: Denies threats or abuse. Nutritional screening: No deficits noted. Tuberculosis screening: No symptoms or risk factors identified. Assessment: 02:46 Reassessment: SEE TRIAGE ASSESSMENT. jj7 Vital Signs: 02:40 BP 126 / 88; Pulse 74; Resp 17; Temp 97.9; Pulse Ox 99% ; Weight 90.72 kg; Height 5 ft. jj7 1 in. ; Pain 7/10; 02:40 Body Mass Index 37.79 (90.72 kg, 154.94 cm) jj7 02:40 Pain Scale: Adult j7 ED Course: 02:35 Patient arrived in ED. ja2 02:37 Louie Lemons MD is Attending Physician. sp3 02:43 Triage completed. jj7 02:43 Arm band placed on right wrist. jj7 02:46 Patient has correct armband on for positive identification. jj7 02:46 No provider procedures requiring assistance completed. Patient did not have IV access jj7 during this emergency room visit. Administered Medications: 02:51 Drug: Tetracaine Ophthalmic Drops 0.5 % 2 drops Route: Ophthalmic; Site: left eye; jj7 02:57 Follow up: Response: Marked relief of symptoms jj7 Medication: 02:46 VIS not applicable for this client. jj7 Outcome: 02:53 Discharge ordered by . sp3 02:57 Discharged to home ambulatory, with significant other. jj7 02:57 Condition: improved 02:57 Discharge instructions given to patient, Instructed on discharge instructions, follow up and referral plans. medication usage, Demonstrated understanding of instructions, follow-up care, medications, Prescriptions given X 1. 02:58 Patient left the ED. jj7 Signatures: Louie Lemons MD MD sp3 Allyson De La Fuente Juwairiyah, RN RN jj7
[2023-03-27] MEDS ORDERED: TETRACAINE HCL 0.5% 4ML OPTH ONE (02:57)
[2023-03-27 03:04] VITALS: BP 126/88; TEMP 97.9; O2SAT 99
== END 2023-03-27 02:58 | disposition home or self-care (01) ==
LOC: ER 02:31
DX: H10.89 Other conjunctivitis (principal)

== ENCOUNTER 2023-08-15 10:26 | Emergency (ER) | payer OTHER ==
--- OUTSIDE RECORDS SUMMARY | 2023-08-15 10:29 | XMS REPORT | Continuity of Care Document ---
:[address] [facility] t Address [address] [place] [address] Care Team Providers Name Role Phone Alta Bowen Attending Clinician Unavailable [email or web address] Attending Clinician Unavailable [email or web address] Admitting Clinician Unavailable Payers Payer Name Policy Type Policy Number Effective Date Expiration Date S trell AETNA 53 [id number] [facility] Blue Cross C1 [id number] Common Sp[facility] t Blue Shield of [facility] Blue Cross C1 [id number] Common Spiri t Blue [facility] Blue Cross and C1 [id number] Common S pirit Blue Shield [facility] Problems Condition Condition Condition Status Onset Resolution Last Treating Co mments Source Name Details Category Date Date Treatment Clinician Date Kidney Nephrolith Problem Commo n stone iasis [facility] [id number] Left flank Problem Co mmon pain [facility] [id number] Proteus Problem Common (mirabilis Spirit ) [facility] (morganii) St as the [facility] cause of Medical diseases Center classified elsewhere [id number] Urinary Problem Commo n tract Spirit infection, - [facility] site not [facility] [id number] Caliectasi Problem Co mmon s [facility] [id number] Nephrouret Problem Co mmon erolithias Spirit is - [facility] Allergies, Adverse Reactions, Alerts This patient has no known allergies or adverse reactions. Social History Social Habit Start Date Stop Date Quantity Comments Source History of Tobacco Use Co mmon [facility] Sex Assigned At Com mon [facility] Smoking Status Start Date Stop Date Source Never Smoker [facility] Medications Ordered Filled Start Stop Current [...] Known No Known No Common Medications Medications [facility] No Known No Known No Common Medications Medications [facility] No Known No Known No Common Medications Medications [facility] No Known No Known No Common Medications Medications [facility] Vital Signs Vital Name Observation Time Observation Value Comments Source height 2022-01-01 10:45:00 61 [in_i] [facility] weight 2022-01-01 10:45:00 199.2 [lb_av] [facility] temperature 2022-01-01 10:45:00 98.6 [degF] [facility] bmi 2022-01-01 10:45:00 37.63 kg/m2 [facility] oximetry 2022-01-01 10:45:00 100 % [facility] respiratory rate 2022-01-01 10:45:00 16 /min Comm on [facility] blood pressure 2022-01-01 10:45:00 150 mm[Hg] Common [facility] - systolic [facility] blood pressure 2022-01-01 10:45:00 84 mm[Hg] Common [facility] - diastolic [facility] height 2021-11-20 13:15:00 61 [in_i] Common [facility] weight 2021-11-20 13:15:00 194 [lb_av] Common [facility] temperature 2021-11-20 13:15:00 98.6 [degF] Common [facility] bmi 2021-11-20 13:15:00 36.65 kg/m2 [facility] oximetry 2021-11-20 13:15:00 98 % [facility] respiratory rate 2021-11-20 13:15:00 16 /min Comm on [facility] blood pressure 2021-11-20 13:15:00 117 mm[Hg] Common [facility] - systolic [facility] blood pressure 2021-11-20 13:15:00 79 mm[Hg] Common [facility] - diastolic [facility] height 2021-10-18 16:15:00 61 [in_i] Common [facility] weight 2021-10-18 16:15:00 196.4 [lb_av] Common [facility] temperature 2021-10-18 16:15:00 97.9 [degF] Common S [facility] bmi 2021-10-18 16:15:00 37.11 kg/m2 Common S [facility] oximetry 2021-10-18 16:15:00 97 % Common [facility] respiratory rate 2021-10-18 16:15:00 16 /min Comm on [facility] blood pressure 2021-10-18 16:15:00 122 mm[Hg] Common [facility] - systolic [facility] blood pressure 2021-10-18 16:15:00 73 mm[Hg] Common [facility] - diastolic [facility] height 2021-09-27 09:15:00 61 [in_i] Common [facility] weight 2021-09-27 09:15:00 199.8 [lb_av] Common [facility] temperature 2021-09-27 09:15:00 97.8 [degF] Common S pirit [facility] bmi 2021-09-27 09:15:00 37.75 kg/m2 Common [facility] oximetry 2021-09-27 09:15:00 96 % [facility] respiratory rate 2021-09-27 09:15:00 18 /min Comm on [facility] blood pressure 2021-09-27 09:15:00 141 mm[Hg] Common Spirit - systolic [facility] blood pressure 2021-09-27 09:15:00 82 mm[Hg] Common [facility] - diastolic [facility] height 2021-04-05 14:30:00 61 [in_i] Common [facility] weight 2021-04-05 14:30:00 200.4 [lb_av] [facility] temperature 2021-04-05 14:30:00 97.4 [degF] Common S [facility] bmi 2021-04-05 14:30:00 37.86 kg/m2 [facility] 2021-04-05 14:30:00 98 % [facility] 2021-04-05 14:30:00 104 mm[Hg] Common [facility] - systolic [facility] blood pressure 2021-04-05 14:30:00 70 mm[Hg] Common [facility] - diastolic [facility] height 2021-02-22 13:30:00 61 [in_i] Common [facility] weight 2021-02-22 13:30:00 199.6 [lb_av] Common [facility] temperature 2021-02-22 13:30:00 97.1 [degF] Common [facility] bmi 2021-02-22 13:30:00 37.71 kg/m2 Common S pirit [facility] oximetry 2021-02-22 13:30:00 99 % Common S [facility] blood pressure 2021-02-22 13:30:00 131 mm[Hg] Common [facility] - systolic [facility] blood pressure 2021-02-22 13:30:00 83 mm[Hg] Common [facility] - diastolic [facility] Procedures This patient has no known procedures. Encounters Start End Encounter Admission Attending Care Care Encounter Source Date/Time Date/Time Type Type Clinicians Facility Department ID 2021-11-06 Outpatient Andrés, STLMLC STLMLC [id number] 2 Common 15:40:01 Alta [facility] 2021-11-01 Outpatient Andrés, STLMLC STLMLC [id number] 2 Common 14:39:29 Alta [facility] 2021-11-01 Outpatient Andrés, STLMLC STLMLC [id number] 2 Common 13:05:14 Alta [id number] [facility] 2023-08-06 2023-08-06 Outpatient [email or web address] PRIV PRIV [id number] [facility] 00:00:00 00:00:00 shahnaz_Patrick [id number] Medic al 2022-01-01 2022-01-01 OFFICE STLMLC STLMLC [id number] Co mmon 00:00:00 00:00:00 VISIT Spirit ESTAB PT - [facility] LEVEL 2 [facility] 2021-12-28 2021-12-28 (TEL) STLMLC STLMLC [id number] Co mmon 00:00:00 00:00:00 [facility] 2021-11-20 2021-11-20 OFFICE STLMLC STLMLC [id number] Co mmon 00:00:00 00:00:00 VISIT Spirit ESTAB PT - [facility] LEVEL 1 [facility] 2021-10-18 2021-10-18 OFFICE STLMLC STLMLC [id number] Co mmon 00:00:00 00:00:00 VISIT Spirit ESTAB PT - [facility] LEVEL 4 [facility] 2021-09-29 2021-09-29 (TEL) STLMLC STLMLC [id number] Co mmon 00:00:00 00:00:00 [facility] 2021-09-27 2021-09-27 OFFICE STLMLC STLMLC [id number] Co mmon 00:00:00 00:00:00 VISIT EST Spir it PT LEVEL 3 - [facility] 2021-04-10 2021-04-10 (TEL) STLMLC STLMLC [id number] Co mmon 00:00:00 00:00:00 [facility] 2021-04-05 2021-04-05 OFFICE STLMLC STLMLC [id number] Co mmon 00:00:00 00:00:00 VISIT Spirit ESTAB PT - [facility] LEVEL 2 [facility] 2021-02-22 2021-02-22 OFFICE STLMLC STLMLC [id number] Co mmon 00:00:00 00:00:00 VISIT NEW Spir it PT LEVEL 2 - [facility] Results This patient has no known results.
[2023-08-15 11:24] LABS: Absolute Lymphocytes (CBC) 2.1 K/uL (0.7-4.9); Hematocrit 42.7 % (36.0-45.0); Lymphocytes % 25.7 % (15.3-44.8); MCV 89.3 fL (80-100); Platelets 177 thou/uL (152-406); RBC Red Blood Cell Count 4.79 M/uL (3.86-4.86)
[2023-08-15 11:32] LABS: Specific Gravity 1.016 (1.005-1.030)
[2023-08-15 11:34] LABS: Specific Gravity 1.016 (1.005-1.030); Urine Bacteria <20 /HPF (<20); Urine Bilirubin NEGATIVE (Negative); Urine Blood 2+ (Negative); Urine Clarity Clear (Clear); Urine Color Light-Yellow (Yellow); Urine Glucose NEGATIVE (Negative); Urine Protein NEGATIVE (Negative); Urine RBC <5 /HPF (None Seen); Urine Urobilinogen Normal (Normal); Urine pH 5.5 (5.0-7.0)
[2023-08-15] MEDS ORDERED: NA CHLORIDE 0.9% 1,000 ML ONE (11:38)
[2023-08-15] MEDS ORDERED: KETOROLAC 30 MG/ML INJ ONE (11:43)
[2023-08-15 11:49] LABS: Albumin 3.9 g/dL (3.4-5.0); Bilirubin Total 0.4 mg/dL (0.2-1.0); Potassium 3.7 mEq/L (3.5-5.1); Protein, Total 8.2 g/dL (6.4-8.2)
--- NOTE | 2023-08-15 12:15 | RAD REPORT ---
EXAM DESCRIPTION: CT - Abdomen Pelvis Wo Contrast - 08/15/2023 12:01 pm CLINICAL HISTORY: Abdominal pain right flank pain COMPARISON: 2012 TECHNIQUE: Computed axial tomography of the abdomen and pelvis was obtained. IV and oral contrast we re not requested. All CT scans are performed using dose optimization technique as appropriate and may include automated exposure control or mA/KV adjustment according to patient size. FINDINGS: The evaluation of solid organs, vessels and bowel is limited secondary to the lack of con trast administration. Liver, spleen, pancreas and adrenals grossly normal. Bilateral renal calculi. Mild right hydronephrosis. 10 millimeter calculus right UPJ Normal appendix. No evidence of diverticulitis. No adnexal mass. Smaller moderate periumbilical hernia IMPRESSION: 10 millimeter calculus right UPJ resulting in mild right hydronephrosis
--- NOTE | 2023-08-15 13:03 | ER ---
Nurse's Notes [facility] Name: Garima Doherty Age: 38 yrs Sex: Female : 1985 Arrival Date: 08/15/2023 Time: 10:26 Bed 19 Private MD: Diagnosis: Kidney stone, ureterolithiasis Presentation: 08/15 11:00 Chief complaint: Patient states: I was at work today and i sat down and started having kd3 a burning pain that starts in the right lower quadrant and moves around to my back. I have had a bowl movement today and i had my period last month. When the pain comes on it gets up to a 10/10 pain, but then it goes away. Coronavirus screen: Vaccine status:. Coronavirus screen: Vaccine status: Patient reports receiving the 1st dose of the Covid vaccine. Ebola Screen: No symptoms or risks identified at this time. Initial Sepsis Screen: Does the patient meet any 2 criteria? No. Patient's initial sepsis screen is negative. Does the patient have a suspected source of infection? No. Patient's initial sepsis screen is negative. Risk Assessment: Do you want to hurt yourself or someone else? Patient reports no desire to harm self or others. Onset of symptoms was August 15, 2023. 11:00 Method Of Arrival: Ambulatory kd3 11:00 Acuity: FAVIOLA 3 kd3 Triage Assessment: 11:02 General: Appears in no apparent distress. Behavior is calm, cooperative. Pain: kd3 Complains of pain in right lower quadrant. GI: Reports lower abdominal pain. Historical: - Allergies: 11:02 No Known Allergies; kd3 - PMHx: 11:02 Kidney stone; kd3 - Immunization history:: Adult Immunizations up to date. - Social history:: Smoking status: Patient denies any tobacco usage or history of. Screenin:18 [facility] ED Fall Risk Assessment (Adult) History of falling in the last 3 months, tm6 including since admission. Abuse screen: Denies threats or abuse. Denies injuries from another. Nutritional screening: No deficits noted. Tuberculosis screening: No symptoms or risk factors identified. Assessment: 11:18 General: Appears uncomfortable, Behavior is calm, cooperative, appropriate for age. tm6 Pain: Complains of pain in back and abdomen Pain currently is 7 out of 10 on a pain scale. Quality of pain is described as burning. Neuro: Level of Consciousness is awake, alert, obeys commands, Oriented to person, place, time, situation, Appropriate for age. Cardiovascular: Capillary refill < 3 seconds Patient's skin is warm and dry. Respiratory: Airway is patent Respiratory effort is even, unlabored, Respiratory pattern is regular, symmetrical. GI: Abdomen is round non-distended. : No signs and/or symptoms were reported regarding the genitourinary system. EENT: No signs and/or symptoms were reported regarding the EENT system. Derm: No signs and/or symptoms reported regarding the dermatologic system. Musculoskeletal: No signs and/or symptoms reported regarding the musculoskeletal system. 12:28 Reassessment: Patient appears in no apparent distress at this time. tm6 13:08 Reassessment: Patient appears in no apparent distress at this time. No changes from ld1 previously documented assessment. Patient and/or family updated on plan of care and expected duration. Pain level reassessed. Patient states feeling better. Vital Signs: 11:00 Weight 90.72 kg; Height 5 ft. 1 in. ; Pain 0/10; kd3 11:16 BP 128 / 87; Pulse 87; Resp 19; Temp 98.1(O); Pulse Ox 95% on R/A; Pain 7/10; tm6 12:27 Pulse 86; Resp 17; Pulse Ox 97% on R/A; tm6 12:29 BP 121 / 76; tm6 11:00 Body Mass Index 37.79 (90.72 kg, 154.94 cm) kd3 11:00 Pain Scale: Adult kd3 11:16 Pain Scale: Adult tm6 ED Course: 10:27 Patient arrived in ED. rg4 10:37 Louie Lemons MD is Attending Physician. sp3 11:02 Triage completed. kd3 11:03 Arm band placed on right wrist. kd3 11:16 Damari Zimmerman, KARAN is Primary Nurse. tm6 11:18 Patient has correct armband on for positive identification. Bed in low position. Call tm6 light in reach. Side rails up X2. Provided Education on: need for IV. Client placed on continuous cardiac and pulse oximetry monitoring. NIBP monitoring applied. Door closed. Noise minimized. 11:18 No provider procedures requiring assistance completed. Inserted saline lock: 20 gauge tm6 in right antecubital area, using aseptic technique. 12:03 CT Abd/Pelvis - Without Contrast In Process Unspecified. EDMS 13:01 Marc Dixon MD is Referral Physician. sp3 13:08 IV discontinued, intact, bleeding controlled, No redness/swelling at site. ld1 Administered Medications: 11:28 Drug: NS 0.9% IV 1000 ml IV at 1 bolus Per protocol; 1000 mL bolus Route: IV; Rate: 1 tm6 bolus; Site: right antecubital; 11:31 Drug: TORadol - Ketorolac IVP 15 mg IVP once; X1 PRN PAIN Route: IVP; Site: right tm6 antecubital; Medication: 11:18 VIS not applicable for this client. tm6 Outcome: 13:02 Discharge ordered by . sp3 13:07 Discharged to home ambulatory, ld1 13:07 Condition: stable 13:07 Discharge instructions given to patient, Instructed on discharge instructions, follow up and referral plans. medication usage, Demonstrated understanding of instructions, follow-up care, medications, Prescriptions given X 2, 13:08 Patient left the ED. ld1 Signatures: Dispatcher [employer] Arleen Villalobos rg4 Deborah Cox RN RN ld1 Louie Lemons MD MD sp3 Brooke Self RN RN kd3 Damari Zimmerman RN RN tm6
--- NOTE | 2023-08-15 13:03 | EDPHYS ---
Physician Documentation [facility] Name: Garima Doherty Age: 38 yrs Sex: Female : 1985 Arrival Date: 08/15/2023 Time: 10:26 Bed 19 Private MD: ED Physician Louie Lemons HPI: 08/15 11:51 This 38 yrs old Female presents to ER via Ambulatory with complaints of sp3 Nausea, Dizziness, Abdominal Pain. 11:51 38-year-old female with a history of kidney stones presents with right lower quadrant sp3 and right upper quadrant abdominal pain rating around to her right flank. Symptoms started earlier today while she was at work and came on somewhat suddenly and come in waves with no pain currently. She denies any other symptoms including nausea, vomiting, diarrhea, fever, URI symptoms, shortness of breath, chest pain, left-sided pain, SOCIAL MEDIA COORDINATOR symptoms, dysuria, urinary frequency, syncope, near syncope, or any other signs or symptoms on ROS at this time.. Historical: - Allergies: 11:02 No Known Allergies; kd3 - PMHx: 11:02 Kidney stone; kd3 - Immunization history:: Adult Immunizations up to date. - Social history:: Smoking status: Patient denies any tobacco usage or history of. ROS: 11:52 Constitutional: Negative for fever, chills, and weight loss, Eyes: Negative for injury, sp3 pain, redness, and discharge, ENT: Negative for injury, pain, and discharge, Neck: Negative for injury, pain, and swelling, Cardiovascular: Negative for chest pain, palpitations, and edema, Respiratory: Negative for shortness of breath, cough, wheezing, and pleuritic chest pain, MS/Extremity: Negative for injury and deformity, Skin: Negative for injury, rash, and discoloration, Neuro: Negative for headache, weakness, numbness, tingling, and seizure, Psych: Negative for depression, anxiety, suicide ideation, homicidal ideation, and hallucinations, Allergy/Immunology: Negative for hives, rash, and allergies, Endocrine: Negative for neck swelling, polydipsia, polyuria, polyphagia, and marked weight changes, Hematologic/Lymphatic: Negative for swollen nodes, abnormal bleeding, and unusual bruising, Exam: 11:52 Constitutional: This is a well developed, well nourished patient who is awake, alert, sp3 and in no acute distress. Head/Face: Normocephalic, atraumatic. Eyes: Pupils equal round and reactive to light, extra-ocular motions intact. Lids and lashes normal. Conjunctiva and sclera are non-icteric and not injected. Cornea within normal limits. Periorbital areas with no swelling, redness, or edema. ENT: Nares patent. No nasal discharge, no septal abnormalities noted. External auditory canals are clear. Oropharynx with no redness, swelling, or masses, exudates, or evidence of obstruction, uvula midline. Mucous membranes moist. Neck: Trachea midline, no thyromegaly or masses palpated, and no cervical lymphadenopathy. Supple, full range of motion without nuchal rigidity, or vertebral point tenderness. No Meningismus. Chest/axilla: Normal chest wall appearance and motion. Nontender with no deformity. No lesions are appreciated. Cardiovascular: Regular rate and rhythm with a normal S1 and S2. No gallops, murmurs, or rubs. Normal PMI, no JVD. No pulse deficits. Respiratory: Lungs have equal breath sounds bilaterally, clear to auscultation and percussion. No rales, rhonchi or wheezes noted. No increased work of breathing, no retractions or nasal flaring. Skin: Warm, dry with normal turgor. Normal color with no rashes, no lesions, and no evidence of cellulitis. MS/ Extremity: Pulses equal, no cyanosis. Neurovascular intact. Full, normal range of motion. Neuro: Awake and alert, GCS 15, oriented to person, place, time, and situation. Cranial nerves II-XII grossly intact. Motor strength 5/5 in all extremities. Sensory grossly intact. Cerebellar exam normal. Normal gait. Psych: Awake, alert, with orientation to person, place and time. Behavior, mood, and affect are within normal limits. 11:52 Abdomen/GI: Mild pain to right lower quadrant and right upper quadrant. No CVA tenderness either side. Nonsurgical abdomen noted., Vital Signs: 11:00 Weight 90.72 kg; Height 5 ft. 1 in. ; Pain 0/10; kd3 11:16 BP 128 / 87; Pulse 87; Resp 19; Temp 98.1(O); Pulse Ox 95% on R/A; Pain 7/10; tm6 12:27 Pulse 86; Resp 17; Pulse Ox 97% on R/A; tm6 12:29 BP 121 / 76; tm6 11:00 Body Mass Index 37.79 (90.72 kg, 154.94 cm) kd3 11:00 Pain Scale: Adult kd3 11:16 Pain Scale: Adult tm6 MDM: 11:01 Patient medically screened. sp3 11:53 Data reviewed: vital signs, nurses notes, lab test result(s), radiologic studies. ED sp3 course: 38-year-old female with right-sided abdominal pain radiating around to her flank. Differential diagnosis is broad and includes kidney stone, UTI, pyelonephritis, functional abdominal pain, constipation, intra-abdominal pathology, among others. I am not highly suspicious for sepsis, shock, SOCIAL MEDIA COORDINATOR pathology, vascular pathology including aortic dissection and/or aneurysm, or any other critical process. Work-up will include CT scan of the abdomen pelvis noncontrast, laboratory values, urine analysis and as needed pain medications as needed. Disposition pending work-up and patient course.. 12:56 ED course: 1 cm kidney stone noted in the right UPJ. Mild hydronephrosis noted. sp3 Laboratory values including creatinine are all within normal limits. Patient's pain is currently controlled. We will discharge patient on diclofenac and clear instructions to follow-up with urology for probable urological intervention. Patient will be discharged to Dr. Dixon and/or other [place] [facility] follow-up as per her insurance coverage.. 08/15 11:02 Order name: CBC with Diff; Complete Time: 12:48 sp3 08/15 11:02 Order name: CMP; Complete Time: 12:48 sp3 08/15 11:02 Order name: Lipase; Complete Time: 12:48 sp3 08/15 11:02 Order name: Test, Urine; Complete Time: 12:48 sp3 08/15 11:02 Order name: Urinalysis w/ reflexes; Complete Time: 12:48 sp3 08/15 11:02 Order name: CT Abd/Pelvis - Without Contrast; Complete Time: 12:48 sp3 08/15 11:02 Order name: IV Saline Lock; Complete Time: 11:21 sp3 08/15 11:02 Order name: Labs collected and sent; Complete Time: 11:21 sp3 Administered Medications: 11:28 Drug: NS 0.9% IV 1000 ml IV at 1 bolus Per protocol; 1000 mL bolus Route: IV; Rate: 1 tm6 bolus; Site: right antecubital; 11:31 Drug: TORadol - Ketorolac IVP 15 mg IVP once; X1 PRN PAIN Route: IVP; Site: right tm6 antecubital; Disposition Summary: 08/15/23 13:02 Discharge Ordered Notes: Location: Home sp3 Condition: Stable sp3 Diagnosis - Kidney stone, ureterolithiasis sp3 Followup: sp3 - With: Private Physician - When: Upon discharge from the Emergency Department - Reason: Recheck today's complaints, Continuance of care Followup: sp3 - With: Marc Dixon MD - When: Upon discharge from the Emergency Department - Reason: Recheck today's complaints, Continuance of care Discharge Instructions: - Discharge Summary Sheet sp3 - Kidney Stones sp3 Forms: - Medication Reconciliation Form sp3 - Thank You Letter sp3 - Antibiotic Education sp3 - Prescription Opioid Use sp3 - Patient Portal Instructions sp3 - Leadership Thank You Letter sp3 - Work release form tm6 Prescriptions: - Flomax 0.4 mg Oral capsule - take 1 capsule ORAL route every 24 hours; 3 capsule; Refills: 0, Product sp3 Selection Permitted - Diclofenac Sodium 75 mg Oral Tablet Sustained Release - take 1 tablet ORAL route 2 times per day; 30 tablet; Refills: 0, Product sp3 Selection Permitted Signatures: Dispatcher [employer] Louie Mo MD MD sp3 Brooke Self RN RN kd3 Damari Zimmerman RN RN tm6
[2023-08-15 13:15] VITALS: TEMP 98.1
[2023-08-15 13:16] VITALS: O2SAT 97
[2023-08-15 13:18] VITALS: BP 121/76
== END 2023-08-15 13:08 | disposition home or self-care (01) ==
LOC: ER 10:26
DX: N20.0 Calculus of kidney (principal); N20.2 Calculus of kidney with calculus of ureter; Z87.442 Personal history of urinary calculi
CPT/HCPCS: 85025; 81001; 36415; 81025; 83690; 80053; 74176; 96374; 99284; J7030